=== PATIENT | male | born 1975 | race African-American/Black ===

== ENCOUNTER 2023-07-29 10:02 | Inpatient (IN) ==
[2023-07-29] MEDS ORDERED: SODIUM CHLORIDE 0.9% 1,000 ML IV SCH (10:28)
--- NOTE | 2023-07-29 11:01 | Emergency Department Note ---
Impression & Plan Ileal intussusception, Abdominal pain, Respiratory syncytial virus (RSV) infection ED Provider Note NAME: LIDA NIETO AGE: 47 SEX: M : 1975 ARRIVES VIA: Walk-In INFORMANT: Patient, ED PROVIDER(S): Leobardo Rendon MD CHIEF COMPLAINT: Abdominal pain MEDICAL DECISION MAKING: Patient presents due to concern for abdominal pain which been ongoing since the weekend. The patient has had associated upper respiratory symptoms as well. IV was established blood was obtained patient was ordered IV fluids and antiemetics. Chest x-ray and bio fire also completed. Blood work shows a white count of 12 with a normal H&H and platelet count. Given the patient's normal hemoglobin the patient is dorsals may have been secondary to the patient's Pepto-Bismol use the patient's kidney function is unremarkable with normal LFTs and lipase. Urinalysis not indicative of obvious infection. RSV positive respiratory negative. CT abdomen pelvis shows ileal ileal intussusception with dilated extra fecalized obstructed loop. No pneumatosis. I did discuss this with the on-call general surgery team Dr. Malik recommended NG tube. I discussed with the patient. This was to be placed. An appropriate NG tube placement so it was recommended to be replaced Discussion w/ other healthcare providers: Dr. Malik general surgery Prior /Outside records reviewed: I reviewed a primary care visit from [facility] from May 2020. Patient was seen due to concern for left hip pain. Differential diagnosis: Appendicitis, testicular torsion, UTI, diverticulitis, obstruction, renal colic, mesenteric adenitis, enteririts, PUD, pancreatitis, biliary pathology, hernia, volvulus, constipation, as well as other pathologies were considered. Diagnostics, as interpreted by me: ECG: None Cardiac monitoring: An order was placed for continuous cardiac monitoring. The monitor shows a rate of 85 with sinus rhythm. Patient was placed on pulse oximetry Medical decision rules: None Imaging studies: I informally interpreted the patient's CT abdomen pelvis which does show bowel obstruction with formal report to follow. HPI: Patient presents due to concern for abdominal pain which has been intermittent but progressed over the last week. Patient has had dry nonproductive cough. Patient had nausea. Patient also relates that he has had some dark stools. Patient does not have any prior history of colon cancer or prior history of blood in the stool. The patient states that he did have a recent colonoscopy and was told that this was unremarkable. Patient does not take any NSAIDs or blood thinning medications. The patient did trial some Pepto-Bismol. PAST MEDICAL HISTORY: See Below PAST SURGICAL HISTORY: See Below SOCIAL HISTORY: See Below HOME MEDICATIONS: See Below ALLERGIES: See Below VITALS: See Below PHYSICAL EXAMINATION: GENERAL: NAD, non-toxic. Wearing glasses and a mask EYE EXAM: Normal conjunctiva. PERRL, no anisocoria and EOM's grossly intact w/o pain. NECK: Supple, no nuchal rigidity, no adenopathy, non-tender. No signs of meningismus. FROM of the neck with good chin to chest and neck extension. No stridor. LUNGS: Clear to auscultation. Normal chest wall mechanics. HEART: NSR, no MRG. ABDOMEN: Abdomen soft, diffuse pain, no masses, no rebound or guarding. BACK: No CVA TTP. SKIN: No rashes and no bruising. UPPER EXTREMITIES: Upper extremities are grossly normal. LOWER EXTREMITIES: Grossly normal, no edema. NEURO EXAM: A&O x3, cranial nerves II-XII grossly intact, normal speech, moves all 4 extremities. Past Med/Surg History Surgical History S/P wisdom tooth extraction Family History Father Lung cancer Denies family history of Ovarian cancer Prostate cancer Myocardial infarction Breast cancer Colorectal cancer Social History Smoking Status: Never smoker Second Hand Exposure: No; Do You Dip or Chew Tobacco: No; Hx Alcohol Use: Yes Alcohol type: beer Alcohol Intake Frequency: Monthly or Less Hx Substance Use: Yes Non-Prescribed Medications: Marijuana Last Used Substance: Just Prior to Arrival Preferred Language: Tunisian Communication Ability: Effective Visual Impairment: No Limitations Hearing Ability: Normal Inventory Control Clerk Required: No Beliefs That Will Affect Care: None marital status: Current Living Situation: Spouse current occupational status: employed current occupation: [employer] Other Information That Helps Us Care for You: No Feels Safe at Home: Yes Safety Concerns: Feels Safe At This Time Childhood Exposure to Second-Hand Smoke: No Diet: regular Dental Care, Regularly: Yes Physical Activity Frequency: 3-4 Times per Week Seatbelt Use: always Sunscreen Use: No Assistive Devices: Glasses Allergies Allergies Allergy/AdvReac Type Severity Reaction Status Date / Time No Known Allergies Allergy Verified 06/14/20 15:10 Home Meds Home Medications Medication Instructions Recorded Confirmed multivitamin 1 tab PO QAM 07/29/23 07/29/23 Results & Data (ED) Vital Signs Vital Signs - 24 hr 07/29/23 12:04 07/29/23 12:10 07/29/23 12:11 Pulse Rate 61 64 59 L Pulse Rate from SpO2 Sensor 60 64 Respiratory Rate 16 17 Blood Pressure Blood Pressure Mean Pulse Oximetry 100 97 07/29/23 12:20 07/29/23 12:30 07/29/23 12:30 Pulse Rate 77 65 Pulse Rate from SpO2 Sensor 75 67 Respiratory Rate 20 19 Blood Pressure 128/74 Blood Pressure Mean 91 Pulse Oximetry 98 100 07/29/23 12:40 07/29/23 12:50 07/29/23 13:00 Pulse Rate 69 58 L 62 Pulse Rate from SpO2 Sensor 68 57 L 63 Respiratory Rate 18 18 17 Blood Pressure Blood Pressure Mean Pulse Oximetry 99 99 99 07/29/23 13:01 07/29/23 13:01 07/29/23 13:10 Pulse Rate 63 59 L Pulse Rate from SpO2 Sensor 64 60 Respiratory Rate 18 17 Blood Pressure 137/74 Blood Pressure Mean 85 Pulse Oximetry 98 99 07/29/23 13:20 07/29/23 13:31 07/29/23 13:31 Pulse Rate 67 Pulse Rate from SpO2 Sensor 70 74 Respiratory Rate 17 16 Blood Pressure 142/79 H Blood Pressure Mean 91 Pulse Oximetry 98 97 07/29/23 13:40 07/29/23 13:50 07/29/23 14:00 Pulse Rate 68 61 68 Pulse Rate from SpO2 Sensor 68 62 67 Respiratory Rate 17 16 17 Blood Pressure Blood Pressure Mean Pulse Oximetry 99 99 99 07/29/23 14:00 07/29/23 14:10 07/29/23 14:20 Pulse Rate 66 68 Pulse Rate from SpO2 Sensor 68 69 Respiratory Rate 20 17 Blood Pressure 100/59 L Blood Pressure Mean 74 Pulse Oximetry 99 99 07/29/23 14:30 07/29/23 14:30 07/29/23 14:40 Pulse Rate 68 72 Pulse Rate from SpO2 Sensor 67 71 Respiratory Rate 15 22 Blood Pressure 120/72 Blood Pressure Mean 92 Pulse Oximetry 99 99 07/29/23 14:50 07/29/23 15:00 07/29/23 15:00 Pulse Rate 71 60 Pulse Rate from SpO2 Sensor 69 59 L Respiratory Rate 16 18 Blood Pressure 125/73 Blood Pressure Mean 85 Pulse Oximetry 99 98 07/29/23 15:10 07/29/23 15:20 07/29/23 15:30 Pulse Rate 63 63 73 Pulse Rate from SpO2 Sensor 62 62 73 Respiratory Rate 16 16 20 Blood Pressure Blood Pressure Mean Pulse Oximetry 99 99 98 07/29/23 15:31 07/29/23 15:31 07/29/23 15:40 Pulse Rate 70 75 Pulse Rate from SpO2 Sensor 69 73 Respiratory Rate 20 16 Blood Pressure 111/65 Blood Pressure Mean 90 Pulse Oximetry 99 99 07/29/23 15:50 07/29/23 16:00 07/29/23 16:01 Pulse Rate 73 77 79 Pulse Rate from SpO2 Sensor 73 68 79 Respiratory Rate 13 14 19 Blood Pressure Blood Pressure Mean Pulse Oximetry 97 99 100 07/29/23 16:01 07/29/23 16:07 07/29/23 16:10 Pulse Rate 142 H 103 H Pulse Rate from SpO2 Sensor Respiratory Rate 21 Blood Pressure Blood Pressure Mean 91 Pulse Oximetry 07/29/23 16:20 07/29/23 16:30 07/29/23 16:40 Pulse Rate 92 H 90 78 Pulse Rate from SpO2 Sensor Respiratory Rate 15 16 18 Blood Pressure Blood Pressure Mean Pulse Oximetry 07/29/23 16:50 07/29/23 16:59 07/29/23 16:59 Pulse Rate 77 93 H Pulse Rate from SpO2 Sensor Respiratory Rate 17 19 Blood Pressure 147/88 H Blood Pressure Mean 90 Pulse Oximetry 07/29/23 17:00 07/29/23 17:01 07/29/23 17:01 Pulse Rate 73 81 Pulse Rate from SpO2 Sensor Respiratory Rate 15 22 Blood Pressure 83/70 L Blood Pressure Mean 81 Pulse Oximetry 07/29/23 17:10 07/29/23 17:20 Pulse Rate 64 75 Pulse Rate from SpO2 Sensor Respiratory Rate 14 17 Blood Pressure Blood Pressure Mean Pulse Oximetry Home Medications Current Medication List: was personally reviewed by me Laboratory Data Attestation: I reviewed the patient's lab results. 07/29/23 11:15 07/29/23 11:15 Lab Results 07/29/23 07/29/23 Range/Units 11:15 11:30 WBC 12.45 H (4.8-10.8) K/ul RBC 5.70 (4.70-6.10) M/uL Hgb 14.4 (14.0-18.0) g/dl Hct 46.0 (42.0-52.0) % MCV 80.7 (80.0-100.0) fL MCH 25.3 (25.0-34.0) pg MCHC 31.3 L (32.0-36.0) g/dL RDW Std Deviation 40.4 (36.4-46.3) fL RDW Coeff of Erick 13.8 (11.5-14.5) % Plt Count 302 (130-400) K/uL MPV 10.4 (9.4-12.4) fL Immature Gran % (Auto) 0.6 % Neut % (Auto) 83.3 % Lymph % (Auto) 9.6 % Dyer % (Auto) 6.2 % Eos % (Auto) 0.1 % Baso % (Auto) 0.2 % Neut # (Auto) 10.38 H (1.40-6.50) K/uL Lymph # (Auto) 1.19 L (1.20-3.40) K/uL Dyer # (Auto) 0.77 H (0.11-0.59) K/uL Eos # (Auto) 0.01 (0.00-0.50) K/uL Baso # (Auto) 0.02 (0.00-0.20) K/uL Immature Gran # (Auto) 0.08 (0.01-0.20) K/uL Sodium 138 (136-145) mmol/L Potassium 3.7 (3.5-5.1) mmol/L Chloride 104 (98-107) mmol/L Carbon Dioxide 26 (21-32) mmol/L Anion Gap 8 (3-11) BUN 8 (6-23) mg/dl Creatinine 0.75 (0.6-1.4) mg/dl Est Cr Clr Drug Dosing 138.6 ml/min Est GFR ( Amer) 125.7 ml/min Est GFR (Non-Af Amer) 108.5 ml/min BUN/Creatinine Ratio 10.7 (10-20) Glucose 107 H (70-99(Fasting)) mg/dl Calcium 9.0 (8.6-10.3) mg/dl Total Bilirubin 0.7 (0.2-1.0) mg/dl AST 12 L (13-39) U/L ALT 7 (7-52) U/L Alkaline Phosphatase 68 (34-104) U/L Total Protein 7.3 (6.0-8.3) gm/dl Albumin 4.0 (3.4-5.0) gm/dl Globulin 3.3 (2.5-4.0) gm/dl Albumin/Globulin Ratio 1.2 (0.9-2) Lipase < 3 L (11-82) U/L Urine Color Dark Yellow Urine Appearance Clear (Clear) Urine pH 8.5 H (4.5-7.5) Ur Specific Hana 1.027 (1.000-1.030) Urine Protein 1+ H (Negative) Urine Glucose (UA) Negative (Negative) Urine Ketones Trace H (Negative) Urine Blood Negative (Negative) Urine Nitrite Negative (Negative) Urine Bilirubin Negative (Negative) Urine Urobilinogen Negative (Negative) Ur Leukocyte Esterase Negative (Negative) Urine WBC (Auto) 1-5 (0-5) /hpf Urine RBC (Auto) 10-30 H (0-4) /hpf U Hyaline Cast (Auto) 1-5 (0-5) /lpf U Epithel Cells (Auto) >30 H (0-5) /lpf Urine Bacteria (Auto) Negative (Negative) Ur Renal Epithelial Cell Not Reportable Adenovirus (PCR) Not Detected (NotDetected) B. pertussis DNA (PCR) Not Detected (NotDetected) B.parapertussis DNA PCR Not Detected (NotDetected) C. pneumoniae DNA (PCR) Not Detected (NotDetected) Coronavirus OC43 (PCR) Not Detected (NotDetected) Coronavirus HKU1 (PCR) Not Detected (NotDetected) Coronavirus 229E (PCR) Not Detected (NotDetected) SARS-CoV-2 (PCR) Not Detected (NotDetected) Coronavirus NL63 (PCR) Not Detected (NotDetected) Human Metapneumovir PCR Not Detected (NotDetected) Influenza Type A (PCR) Not Detected (NotDetected) Influenza Type B (PCR) Not Detected (NotDetected) M. pneumoniae (PCR) Not Detected (NotDetected) Parainfluenza 1 (PCR) Not Detected (NotDetected) Parainfluenza 2 (PCR) Not Detected (NotDetected) Parainfluenza 3 (PCR) Not Detected (NotDetected) Parainfluenza 4 (PCR) Not Detected (NotDetected) RSV (PCR) DETECTED A* (NotDetected) Entero/Rhino (PCR) Not Detected (NotDetected) Administered Medications Lactated Ringer's (Lr) 1,000 mls @ 125 mls/hr IV .Q8H DONNA Stop: 08/28/23 18:44 Last Admin: 07/30/23 03:42 Dose: 125 mls/hr Documented By: Infusion: 07/30/23 03:42 Dose: Infused Documented By: Admin: 07/29/23 19:56 Dose: 125 mls/hr Documented By: LY Morphine Sulfate (Morphine Sulfate 4 Mg/Ml 1 Ml Carp\Vial) 4 mg IV Q3H PRN PRN Reason: Pain (6,7,8,9,10) Stop: 08/12/23 18:44 Last Admin: 07/30/23 08:10 Dose: 4 mg Documented By: Admin: 07/30/23 03:42 Dose: 4 mg Documented By: Admin: 07/29/23 23:32 Dose: 4 mg Documented By: LY Morphine Sulfate (Morphine Sulfate 2 Mg/Ml Carp) 2 mg IV Q3H PRN PRN Reason: Pain (1,2,3,4,5) & Pre PT Stop: 08/12/23 18:44 Last Admin: 07/29/23 20:14 Dose: 2 mg Documented By: LY Discontinued Medications Sodium Chloride (Nss) 1,000 mls @ 999 mls/hr IV .Q1H1M DONNA Stop: 07/29/23 11:28 Last Admin: 07/29/23 11:31 Dose: Not Given Documented By: RAVINDRA Sodium Chloride (Nss) 1,000 mls @ 999 mls/hr IV .Q1H1M ONE Stop: 07/29/23 12:25 Last Infusion: 07/29/23 14:31 Dose: Infused Documented By: Admin: 07/29/23 11:30 Dose: 999 mls/hr Documented By: RAVINDRA Acetaminophen (Ofirmev) 1,000 mg in 100 mls @ 400 mls/hr IV NOW STA Stop: 07/29/23 11:39 Last Infusion: 07/29/23 12:04 Dose: Infused Documented By: Admin: 07/29/23 11:31 Dose: 400 mls/hr Documented By: RAVINDRA Ioversol (Optiray 320 500ml) 94 ml IV ONCE ONE Stop: 07/29/23 13:25 Last Admin: 07/29/23 13:24 Dose: 94 ml Documented By: MARYANNE Ondansetron HCl (Ondansetron Inj 2 Mg/Ml 2 Ml Vial) 4 mg IV NOW STA Stop: 07/29/23 11:26 Last Admin: 07/29/23 11:31 Dose: 4 mg Documented By: RAVINDRA Imaging Data Radiologist's Impression: Chest X-Ray 07/29/23 00:00 SINGLE VIEW CHEST CLINICAL HISTORY: Enteric tube placement. FINDINGS: 2 AP, portable, upright chest radiographs are compared to study performed earlier the same day 07/29/2023. An enteric tube has been placed. The tip projects above the lakshmi. The cardiomediastinal silhouette is top normal for projection. The lungs and pleural spaces are clear. No pneumothorax is seen. The bony thorax is grossly intact. IMPRESSION: 1. An enteric tube has been placed. The tip projects above the lakshmi. Repositioning is indicated. 2. The lungs are clear. ACT 112: Negative or not required by law. Electronically signed by: Hemal Batres M.D. 07/29/2023 7:01 PM Abdomen/Pelvis CT 07/29/23 10:[address] WITH IV CONTRAST CT DOSE: 1238.34 mGy.cm HISTORY: Acute generalized abdominal pain with nausea, vomiting and diarrhea PAIN, N/V/D X 5 DAYS TECHNIQUE: Multiaxial CT images of the abdomen and pelvis were performed following the IV administration of 94 cc of Optiray, A dose lowering technique was utilized adhering to the principles of ALARA. COMPARISON STUDY: None. FINDINGS: Clear lung bases. No free air. Unremarkable spleen, pancreas, gallbladder and adrenal glands. 1.370 left hepatic lobe cyst. Indeterminate ill- defined area of slightly decreased attenuation within the inferior right hepatic lobe, 2.67 m. This may represent vascular shunting versus an indeterminate lesion. Unremarkable kidneys with a few subcentimeters hypodensities which are likely benign. Prostate is upper limits of normal in size. Mild nonspecific urinary bladder wall thickening. Unremarkable aorta. No lymphadenopathy. Moderate colonic fecal retention. Partial distention of the sigmoid with mild wall thickening. Normal appendix. Residual enteric contrast is noted within the bowel. There is dilation of the distal ileum with an ileal ileal intussusception. There is associated ileal wall thickening with adjacent inflammatory stranding. A dilated and obstructed stool-filled loop proximal to the intussusception measures 3.6 cm. The remainder of the small bowel is normal in caliber. Tiny fat filled umbilical hernia. No acute fracture. IMPRESSION: 1. Distal ileal ileal intussusception is noted resulting in a dilated upstream fecalized obstructed loop. Although not visualized on this exam, an ileal mass/lead point would be the diagnosis of exclusion. Surgical consultation is needed. 2. No pneumatosis or pneumoperitoneum. 3. Normal appendix. 4. Colonic diverticulosis without acute diverticulitis. 5. Nonspecific wall thickening of the sigmoid colon may be secondary to chronic diverticular disease. This could be correlated with a follow-up colonoscopy. ACT 112: Negative or not required by law. The above report was generated using voice recognition software. It may contain grammatical, syntax or spelling errors. Electronically signed by: Brian Mata M.D. 07/29/2023 2:02 PM Chest X-Ray 07/29/23 11:25 XR chest 1V portable HISTORY: 47 years-old Male cough acute cough COMPARISON: None TECHNIQUE: AP view of the chest FINDINGS: Cardiomediastinal and hilar silhouettes are within normal limits. No pneumothorax, pleural effusion, airspace consolidation or pulmonary edema. Bones appear grossly intact. IMPRESSION: No acute process. ACT 112: Negative or not required by law. The above report was generated using voice recognition software. It may contain grammatical, syntax or spelling errors. Electronically signed by: Brian Mata M.D. 07/29/2023 12:06 PM Discharge Plan Visit Data Chief Complaint: Vomiting Stated Complaint: NAUSEA,VOMITING,ABD PAIN BLACK STOOL ED Provider: Leobardo Rendon Discharge Problem: Ileal intussusception, Abdominal pain, Respiratory syncytial virus (RSV) infection Patient Disposition: Admitted As Inpatient Discharge Instructions Interventions: ED Discharge Assessment Last Done: 07/29/23 18:14 Discharge Problem: Abdominal pain Qualifiers: Abdominal location: generalized Qualified Code(s): R10.84 - Generalized abdominal pain
[2023-07-29] MEDS ORDERED: ONDANSETRON INJ 2 MG/ML 2 ML VIAL IV STA (11:25)
[2023-07-29] MEDS ORDERED: SODIUM CHLORIDE 0.9% 1,000 ML IV ONE (11:25)
[2023-07-29] MEDS ORDERED: ACETAMINOPHEN 1,000 MG/100 ML VIAL IV STA (11:25)
[2023-07-29 11:42] LABS: Basophils # (auto) 0.02 K/uL (0.00-0.20); Basophils % (auto) 0.2 %; Eosinophils # (auto) 0.01 K/uL (0.00-0.50); Eosinophils % (auto) 0.1 %; Hemoglobin 14.4 g/dl (14.0-18.0); Immature Granulocytes # (auto) 0.08 K/uL (0.01-0.20); Immature Granulocytes % (auto) 0.6 %; Lymphocytes # (auto) 1.19 K/uL (1.20-3.40); Lymphocytes % (auto) 9.6 %; Mean Corpuscular Hemoglobin 25.3 pg (25.0-34.0); Mean Corpuscular Hgb Conc 31.3 g/dL (32.0-36.0); Mean Corpuscular Volume 80.7 fL (80.0-100.0); Mean Platelet Volume 10.4 fL (9.4-12.4); Monocytes # (auto) 0.77 K/uL (0.11-0.59); Monocytes % (auto) 6.2 %; Neutrophils # (auto) 10.38 K/uL (1.40-6.50); Neutrophils % (auto) 83.3 %; Platelet Count 302 K/uL (130-400); RDW Coefficient of Variation 13.8 % (11.5-14.5); RDW Standard Deviation 40.4 fL (36.4-46.3); White Blood Count 12.45 K/ul (4.8-10.8)
[2023-07-29 11:58] LABS: Appearance Urine Clear (Clear); Bacteria Urine Automated Negative (Negative); Bilirubin Urine Negative (Negative); Blood Urine Negative (Negative); Color Urine Dark Yellow; Epithelial Cell Urine Auto >30 /lpf (0-5); Glucose Urine UA Negative (Negative); Ketones Urine Trace (Negative); Leukocyte Esterase Urine Negative (Negative); Nitrite Urine Negative (Negative); Specific Gravity Urine 1.027 (1.000-1.030); Urobilinogen Urine Negative (Negative); pH Urine 8.5 (4.5-7.5)
[2023-07-29 12:06] LABS: Anion Gap 8 (3-11); BUN Creatinine Ratio 10.7 (10-20); Blood Urea Nitrogen 8 mg/dl (6-23); Carbon Dioxide 26 mmol/L (21-32); Chloride 104 mmol/L (98-107); Creatinine Clr Calc Pharmacy 138.6 ml/min; Est GFR (African American) 125.7 ml/min; Est GFR (Non-African American) 108.5 ml/min; Glucose 107 mg/dl (70-99(Fasting)); Potassium 3.7 mmol/L (3.5-5.1); Sodium 138 mmol/L (136-145)
--- NOTE | 2023-07-29 12:08 | XRay Report ---
XR chest 1V portable HISTORY: 47 years-old Male cough acute cough COMPARISON: None TECHNIQUE: AP view of the chest FINDINGS: Cardiomediastinal and hilar silhouettes are within normal limits. No pneumothorax, pleural effusion, airspace consolidation or pulmonary edema. Bones appear grossly intact. IMPRESSION: No acute process. ACT 112: Negative or not required by law. The above report was generated using voice recognition software. It may contain grammatical, syntax o r spelling errors. Electronically signed by: Brian Mata M.D. 07/29/2023 12:06 PM
[2023-07-29 12:15] LABS: Alanine Aminotransferase 7 U/L (7-52); Albumin Globulin Ratio 1.2 (0.9-2); Alkaline Phosphatase 68 U/L (34-104); Aspartate Aminotransferase 12 U/L (13-39); Bilirubin,Total 0.7 mg/dl (0.2-1.0); Globulin 3.3 gm/dl (2.5-4.0); Lipase < 3 U/L (11-82); Total Protein 7.3 gm/dl (6.0-8.3)
[2023-07-29 12:16] LABS: Protein Urine 1+ (Negative)
[2023-07-29 12:43] LABS: Adenovirus PCR Not Detected (NotDetected); Bordetella parapertussis PCR Not Detected (NotDetected); Bordetella pertussis PCR Not Detected (NotDetected); Chlamydia pneumoniae PCR Not Detected (NotDetected); Coronavirus 229E PCR Not Detected (NotDetected); Coronavirus CoV-2 (COVID19)PCR Not Detected (NotDetected); Coronavirus HKU1 PCR Not Detected (NotDetected); Coronavirus NL63 PCR Not Detected (NotDetected); Coronavirus OC43PCR Not Detected (NotDetected); Human Metapneumovirus PCR Not Detected (NotDetected); Influenza A PCR Not Detected (NotDetected); Influenza B PCR Not Detected (NotDetected); Mycoplasma pneumoniae PCR Not Detected (NotDetected); Parainfluenza Virus 1 PCR Not Detected (NotDetected); Parainfluenza Virus 2 PCR Not Detected (NotDetected); Parainfluenza Virus 3 PCR Not Detected (NotDetected); Parainfluenza Virus 4 PCR Not Detected (NotDetected); Rhinovirus/Enterovirus PCR Not Detected (NotDetected)
[2023-07-29 12:53] LABS: Respiratory Syncytial VirusPCR DETECTED (NotDetected)
[2023-07-29] MEDS ORDERED: OPTIRAY 320 500ml IV ONE (13:24)
--- NOTE | 2023-07-29 14:04 | CT Scan Report ---
ABDOMEN AND PELVIS CT WITH IV CONTRAST CT DOSE: 1238.34 mGy.cm HISTORY: Acute generalized abdominal pain with nausea, vomiting and diarrhea PAIN, N/V/D X 5 DAYS TECHNIQUE: Multiaxial CT images of the abdomen and pelvis were performed following the IV administrat ion of 94 cc of Optiray, A dose lowering technique was utilized adhering to the principles of ALARA. COMPARISON STUDY: None. FINDINGS: Clear lung bases. No free air. Unremarkable spleen, pancreas, gallbladder and adrenal gland s. 1.370 left hepatic lobe cyst. Indeterminate ill-defined area of slightly decreased attenuation wit hin the inferior right hepatic lobe, 2.67 m. This may represent vascular shunting versus an indetermi ayaka lesion. Unremarkable kidneys with a few subcentimeters hypodensities which are likely benign. Prostate is upp er limits of normal in size. Mild nonspecific urinary bladder wall thickening. Unremarkable aorta. No lymphadenopathy. Moderate colonic fecal retention. Partial distention of the sigmoid with mild wall thickening. Normal appendix. Residual enteric contrast is noted within the bowel. There is dilation of the distal ileum with an ileal ileal intussusception. There is associated ileal wall thickening with adjacent inflamm atory stranding. A dilated and obstructed stool-filled loop proximal to the intussusception measures 3.6 cm. The remainder of the small bowel is normal in caliber. Tiny fat filled umbilical hernia. No a cute fracture. IMPRESSION: 1. Distal ileal ileal intussusception is noted resulting in a dilated upstream fecalized obstructed l oop. Although not visualized on this exam, an ileal mass/lead point would be the diagnosis of exclusi on. Surgical consultation is needed. 2. No pneumatosis or pneumoperitoneum. 3. Normal appendix. 4. Colonic diverticulosis without acute diverticulitis. 5. Nonspecific wall thickening of the sigmoid colon may be secondary to chronic diverticular disease. This could be correlated with a follow-up colonoscopy. ACT 112: Negative or not required by law. The above report was generated using voice recognition software. It may contain grammatical, syntax o r spelling errors. Electronically signed by: Brian Mata M.D. 07/29/2023 2:02 PM
--- NOTE | 2023-07-29 17:25 | History & Physical Report ---
Date of Service July 29, 2023 Assessment & Plan (1) Ileal intussusception: Plan: IVF IV abx ng decompression possible enema History of Present Illness Primary Care Provider: Moreno Allen DO This 39-year-old black male who presents with about a week history of some nausea and vomiting. Also some mild diffuse abdominal pain. She had a change in bowel this included some black stools. He denies any fevers chills. CT scan done in the ED shows likely distal ileal intussusception with possible lead point. Allergies Allergy/AdvReac Type Severity Reaction Status Date / Time No Known Allergies Allergy Verified 06/14/20 15:10 Home Medications Medication Instructions Recorded Confirmed Type multivitamin 1 tab PO QAM 07/29/23 07/29/23 History Past Med/Surg History Surgical History S/P wisdom tooth extraction Family History Father Lung cancer Denies family history of Ovarian cancer Prostate cancer Myocardial infarction Breast cancer Colorectal cancer Social History Smoking Status: Never smoker Second Hand Exposure: No; Do You Dip or Chew Tobacco: No; Hx Alcohol Use: Yes Alcohol type: beer Alcohol Intake Frequency: Monthly or Less Hx Substance Use: Yes Non-Prescribed Medications: Marijuana Last Used Substance: Hours (ago) Preferred Language: Burmese Communication Ability: Effective Visual Impairment: No Limitations Hearing Ability: Normal marital status: Current Living Situation: Spouse current occupational status: employed current occupation: [employer] Feels Safe at Home: Yes Childhood Exposure to Second-Hand Smoke: No Diet: regular Dental Care, Regularly: Yes Physical Activity Frequency: 3-4 Times per Week Seatbelt Use: always Sunscreen Use: No Review of Systems Constitutional: + anorexia; no fever and no chills Eyes: no problem reported Ear, Nose, Mouth, Throat: no problem reported Respiratory: no cough and no dyspnea Cardiovascular: no chest pain Gastrointestinal: + abdominal pain, + nausea and + vomitin g Genitourinary: no dysuria Musculoskeletal: no back pain Integumentary: no problem reported Neurologic: no problem reported Psychiatric: no problem reported Endocrine: no problem reported Hematologic / Lymphatic: no easy bleeding and no easy bruising Physical Exam Constitutional: WD/WN, vitals as above Eyes: PERRL, conjunctivae normal, anicteric sclerae ENMT: external ear and nose normal, oropharynx normal Neck: trachea midline Respiratory: normal respiratory effort, lungs clear to auscultation Cardiovascular: RRR, no murmur, no edema Gastrointestinal (Abdomen): Inspection/Auscultation: abdomen normal to inspection and normal bowel sounds; abdomen not distended Percus justin/Palpation: + abdomen tender and abdomen soft; no guarding and abdomen not rigid Musculoskeletal: Head/Neck/Chest: normocephalic and head atraumatic Skin: no rashes, warm and dry Results & Data Results & Data Vital Signs (Past 12 Hours) Vital Signs Temp Pulse Resp BP Pulse Ox O2 Del Method 07/29/23 16:30 90 16 07/29/23 16:20 92 H 15 07/29/23 16:10 103 H 21 07/29/23 16:07 142 H 07/29/23 16:01 79 19 100 07/29/23 16:00 77 14 99 07/29/23 15:50 73 13 97 07/29/23 15:40 75 16 99 07/29/23 15:31 70 20 99 07/29/23 15:31 111/65 07/29/23 15:30 73 20 98 07/29/23 15:20 63 16 99 07/29/23 15:10 63 16 99 07/29/23 15:00 125/73 07/29/23 15:00 60 18 98 07/29/23 14:50 71 16 99 07/29/23 14:40 72 22 99 07/29/23 14:30 120/72 07/29/23 14:30 68 15 99 07/29/23 14:20 68 17 99 07/29/23 14:10 66 20 99 07/29/23 14:00 100/59 L 07/29/23 14:00 68 17 99 07/29/23 13:50 61 16 99 07/29/23 13:40 68 17 99 07/29/23 13:31 16 97 07/29/23 13:31 142/79 H 07/29/23 13:20 67 17 98 07/29/23 13:10 59 L 17 99 07/29/23 13:01 137/74 07/29/23 13:01 63 18 98 07/29/23 13:00 62 17 99 07/29/23 12:50 58 L 18 99 07/29/23 12:40 69 18 99 07/29/23 12:30 128/74 07/29/23 12:30 65 19 100 07/29/23 12:20 77 20 98 07/29/23 12:11 59 L 07/29/23 12:10 64 17 97 07/29/23 12:04 61 16 100 07/29/23 10:07 36.5 C 106 H 18 131/89 99 Room Air Diagnostic Findings ABDOMEN AND PELVIS CT WITH IV CONTRAST CT DOSE: 1238.34 mGy.cm HISTORY: Acute generalized abdominal pain with nausea, vomiting and diarrhea PAIN, N/V/D X 5 DAYS TECHNIQUE: Multiaxial CT images of the abdomen and pelvis were performed following the IV administration of 94 cc of Optiray, A dose lowering technique was utilized adhering to the principles of ALARA. COMPARISON STUDY: None. FINDINGS: Clear lung bases. No free air. Unremarkable spleen, pancreas, g allbladder and adrenal glands. 1.370 left hepatic lobe cyst. Indeterminate ill- defined area of slightly decreased attenuation within the inferior right hepatic lobe, 2.67 m. This may represent vascular shunting versus an indeterminate lesion. Unremarkable kidneys with a few subcentimeters hypodensities which are likely benign. Prostate is upper limits of normal in size. Mild nonspecific urinary b ladder wall thickening. Unremarkable aorta. No lymphadenopathy. Moderate colonic fecal retention. Partial distention of the sigmoid with mild wall thickening. Normal appendix. Residual enteric contrast is noted within the bowel. There is dilation of the distal ileum with an ileal ileal intussusception. There is associated ileal wall thickening with adjacent inflammatory stranding. A dilated and obstructed stool-filled loop proximal to the intussusception measures 3.6 cm. The remainder of the small bowel is normal in caliber. Tiny fat filled umbilical hernia. No acute fracture. IMPRESSION: 1. Distal ileal ileal intussusception is noted resulting in a dilated upstream fecalized obstructed loop. Although not visualized on this exam, an ileal mass/lead point would be the diagnosis of exclusion. Surgical consultation is needed. 2. No pneumatosis or pneumoperitoneum. 3. Normal appendix. 4. Colonic diverticulosis without acute diverticulitis. 5. Nonspecific wall thickening of the sigmoid colon may be secondary to chronic diverticular disease. This could be correlated with a follow-up colonoscopy.
--- NOTE | 2023-07-29 19:03 | XRay Report ---
SINGLE VIEW CHEST CLINICAL HISTORY: Enteric tube placement. FINDINGS: 2 AP, portable, upright chest radiographs are compared to study performed earlier the same day 07/29/2023. An enteric tube has been placed. The tip projects above the lakshmi. The cardiomediast inal silhouette is top normal for projection. The lungs and pleural spaces are clear. No pneumothorax is seen. The bony thorax is grossly intact. IMPRESSION: 1. An enteric tube has been placed. The tip projects above the lakshmi. Repositioning is indicated. 2. The lungs are clear. ACT 112: Negative or not required by law. Electronically signed by: Hemal Batres M.D. 07/29/2023 7:01 PM
--- NOTE | 2023-07-29 19:22 | XRay Report ---
KUB CLINICAL HISTORY: Enteric tube placement. FINDINGS: 2 AP, portable, supine abdominal radiographs are correlated with abdominal CT performed the same day 07/29/2023. An enteric tube has been placed. The tip projects below the diaphragm over the gastric fundus. There is gaseous distention of the small bowel loops which measure up to 3.2 cm in di ameter. When correlated with today's abdominal CT scan this likely represents obstruction. Intussusce ption seen by CT is not appreciated by x-ray. There is mild to moderate fecal retention throughout th e colon. No abnormal abdominal calcifications are identified. Excreted IV contrast fills the bladder. The lung bases are clear as imaged. The bony structures appear intact. IMPRESSION: 1. An enteric tube has been placed as above. 2. Persistent small bowel obstruction. Electronically signed by: Hemal Batres M.D. 07/29/2023 7:20 PM
[2023-07-29] MEDS: LACTATED RINGER'S 1,000 ML IV SCH (19:56)
--- OUTSIDE RECORDS SUMMARY | 2023-07-29 20:12 | External Medical Summary | Continuity of Care Document ---
Author Name Unknown Organization [id number] Address [address] [place] [phone] Care Team Providers Care Sterilization Technician Name Role Phone Moreno Allen Kelly Primary Care Physician [phone] Encounter [facility] [id number] Date(s): 05/14/23 - 05/14/23 [facility] 0 Partly [facility] [address] [facility] [address] [place] [address] Encounter Diagnosis Left hip pain(Discharge Diagnosis) - 05/14/23 Discharge Disposition: Home or Self Care Attending Physician: MD Scar, Waqas Osman Allergies, Adverse Reactions, Alerts No Known Allergies Immunizations Given and Recorded Vaccine Date Status Refusal Reason influenza virus vaccine, inactivated 07/23/18 Maurice rded Medications One-A-Day Men's Health Formula Start: 12/31/14 13:38:00 Start Date: 12/31/14 Status: Ordered Vitamin C Start: 12/26/21 13:05:00 EDT Start Date: 12/26/21 Status: Ordered Vitamin D3 Start: 12/26/21 13:05:00 EDT Start Date: 12/26/21 Status: Ordered vitamin E Start: 12/26/21 13:05:00 EDT Start Date: 12/26/21 Status: Ordered Mental Status 05/14/23 Barriers to Learning one year None evide nt Mandatory Health Literacy Documentation Yes Health Literacy Communication Barriers N ever Primary Language Tamazight Problem List Condition Confirmation Course Effective Dates Status Health St [facility]us Informant Contact dermatitis Confirmed Active DEPRESSION Confirmed Active Left hip pain Confirmed Active Weight disorder Confirmed Active Diagnosis Diagnosis Type Effective Dates Health Status Cl inical Service Informant Left hip pain Discharge Diagnosis 05/14/23 Procedures Procedure Date Related Diagnosis Body Site Status Colonoscopy 1 02/18/23 Completed Hip X-ray 2 12/28/22 Completed none Completed 1Impression: The rectum, sigmoid colon, descending colon, splenic flexure, transverse colon, hepaticflexure, ascending colon, cecum and recto-sigmoid colon are normal No specimens collected Repeat 10 years 2Impression: No acute osseous abnormality. Social History Social History Type Response Smoking Status Never smoked cigaret yaniv Sex Male 1Smoked for 2 to 3 years during college. Patient Care team information Care Team Personnel Name: DO Allen Franklin J Position: Physician - Family Med Member Role: Primary Care Provider Address: Address: [facility] [address] [address] Care Team Related Persons Name: KYARA NIETO Address: home [address] [place] [phone]
--- OUTSIDE RECORDS SUMMARY | 2023-07-29 20:12 | External Medical Summary | Continuity of Care Document ---
Author Name Unknown Organization [id number] Address [address] [place] [address] [phone] Care Team Providers Care Health Care Facilities Inspector Name Role Phone Moreno Allen Primary Care Physician [phone] Encounter [facility] [id number] Date(s): 02/05/23 - 02/05/23 [facility] 0 [facility] [address] [facility] Sports Medicine [address] [place] [address] Encounter Diagnosis Femoroacetabular impingement of left hip(Discharge Diagnosis) - 02/05/23 Left hip pain(Discharge Diagnosis) - 02/05/23 Discharge Disposition: Home or Self Care Attending Physician: MD Abbott Paul K Referring Physician: DO Allen Franklin J Allergies, Adverse Reactions, Alerts No Known Allergies Assessment and Plan Extracted from: Title:Waqas Abbott Author:Christine Saldana ate:02/05/23 IMPRESSION: 47 y/o male with left hip pain question labrum tear PLAN: Initial conservative options include diagnostic and therapeutic US guided cortisone injection of the left hip and physical therapy. He would like to start with PT prior to an injection. He will contact the office if he Discuss that if pain does not improve with conservative measures surgical repair of potential labrum tear is an option. Follow-up 3-4 months Immunizations Given and Recorded Vaccine Date Status [...] Start Date: 12/26/21 Status: Ordered Mental Status 02/05/23 Barriers to Learning one year None evide nt Mandatory Health Literacy Documentation Yes Health Literacy Communication Barriers N ever Primary Language Turkmen Problem List Condition Confirmation Course Effective Dates Status Health St atus Informant Contact dermatitis Confirmed Active DEPRESSION Confirmed Active Left hip pain Confirmed Active Weight disorder Confirmed Active Diagnosis Diagnosis Type Effective Dates Health Status Clinical Service Informant Left hip pain Discharge Diagnosis 02/05/23 Femoroacetabular impingement of left hip Discharge Diagnosis 02/05/23 Procedures Procedure Date Related Diagnosis Body Site Status Hip X-ray 1 12/28/22 Completed none Completed 1Impression: No acute osseous abnormality. Vital Signs Most recent to oldest [Reference Range]: 1 Height 181 cm (02/05/23 8:33 AM) Patient Weight 93 kg (02/05/23 8:33 AM) Body Mass Index 28.39 kg/m2 (02/05/23 8:33 AM) Social History Social History Type Response Smoking Status Former Smoker, quit within 31 days - 1 yr Sex Male 1Smoked for 2 to 3 years during college. Ortho Outpt Note * Christine Saldana: MODIFY, PERFORM Event Display: Ortho Outpt Note Authored Date: [id number] Primary Care Provider DO Allen Franklin J Referring Provider DO Allen Franklin J Chief Complaint L hip pain History of Present Illness [id number] yearJerrod presents today forevaluation of left hip pain. Patient reports he developed left hip pain 2 years ago while in a deep squat stretch. He did seea physical or massage therapist at onset who performed stretches that improved his symptoms. Patient states he has a feeling of instability in his hip that will give a sense of being off-balance withtwisting movements. He notes improvement of pain with hip flexorstretching. He characterizes the pain as a 3/10 persistent pain localized to the groin area that is exacerbated with the instability w hiletwisting thehip. He has tried ibuprofen as needed for pain. Patient denies numbness and back pain but does endorseinfrequent clicking of the hip. Review of Systems Complete 14 system review in shared EMR Physical Exam Vitals & Measurements HT:181cm WT:93.000kg(Dosing) WT:93kg BMI:28.39 Focusing on the patient's left lower extremity: Sensation intact to light touch L3 to S1 dermatomes ROM: Tightness with Flexion 115/ Abduction 40/ External rotation 50/ Internal rotation 20 5-/5 Strength Hip abduction NegativeLog roll PositiveScour test PositiveImpingement test Negative Derrick's test Mild Tenderness over trochanteric bursa Positive Tenderness over joint capsule, posterior and superiorly NegativeSI joint tenderness Diagnostic Results I obtained and personally interpreted AP Pelvis and Left hip AP and lateral viewswhich shows a positive cross-over sign, joint space well-maintained. Note is made of well-circumscribed radiodensityin inner trochanteric region, benign appearing Assessment/Plan IMPRESSION: 47 y/o male with left hip pain question labrum tear PLAN: Initial conservative options include diagnostic and therapeutic US guided cortisone injection of the left hip and physical therapy. He would like to start with PT prior to an injection. He will contact the office if he Discuss that if pain does not improve with conservative measures surgical repairof potential labrum tear is an option. Follow-up 3-4 months Attestation Christine Ray, scribing for and in the presence of, Waqas Abbott, on this date,02/05/2023 09:00:04. Problem List/Past Medical History Ongoing Contact dermatitis DEPRESSION Left hip pain Weight disorder Procedure/Surgical History Hip X-ray (12/28/2022)none Medications ascorbic acid(Vitamin C) cholecalciferol(Vitamin D3) multivitamin(One-A-Day Men's Health Formula) vitamin E Allergies NKA Social History Smoking Status Former Smoker, quit within 31 days - 1 yr Alcohol - Denies Alcohol Use Use:Current Type:Beer Frequency:1-2 times per week Average drinks per episode in last year:2 Home/Environment Smoker in household:No Injuries/Abuse/Neglect in household:No Feels unsafe at home:No Substance Abuse - Denies Substance Abuse Use:Current Type:Marijuana Tobacco - Denies Tobacco Use Use:Never smoker - Comments: Smoked for 2 to 3 years during college. Family History Alzheimer disease: Father. Arthritis: Father. Cancer: Mother and Father. Diverticulitis: Father. Migraine: Father. Health Status Family Member(s) Immunizations Vaccine Date Status influenza virus vaccine, inactivated 07/23/2018 Recorded Recommendations Health Maintenance Pending(in the next year) OverDue Adult Influenza Vaccine due02/13/22and every 1year Due Adult COVID-19 Vaccination due02/05/23Unknown Frequency Adult Tdap/Td Vaccine due02/05/23Unknown Frequency Colorectal Cancer Screening due02/05/23Unknown Frequency Hepatitis C Screening due02/05/23One-time only Lipid Screening due02/05/23Unknown Frequency Due In Future Body Mass Index not due until02/05/24and every 1year Satisfied(in the past 1 year) Satisfied Body Mass Index on02/05/23.Satisfied by ROXANNE Dejesus Kennie L Electronic Signature on File Electronically Reviewed/Signed by: Christine Saldana Author Signature Dt/Tm:02/05/2023 09:47 AM Electronically Reviewed/Signed by: Waqas Abbott MD Cosigner Signature Dt/Tm: 02/05/2023 01:35PM Division of Sports Medicine [place] Patient Care team information Care Team Personnel Name: DO Allen Franklin J Position: Physician - Family Med Member Role: Primary Care Provider Address: Address: [facility] [address] [address] Care Team Related Persons Name: KYARA NIETO Address: home [address] [place] [phone]
[2023-07-29] MEDS: MoRPHine SULFATE 2 MG/ML CARP IV PRN (20:14)
[2023-07-29] MEDS: MoRPHine SULFATE 4 MG/ML 1 ML CARP\\VIAL IV PRN (23:32)
[2023-07-30] MEDS: MoRPHine SULFATE 4 MG/ML 1 ML CARP\\VIAL IV PRN ×3 (03:42→19:45)
[2023-07-30] MEDS: LACTATED RINGER'S 1,000 ML IV SCH ×3 (03:42→19:45)
--- NOTE | 2023-07-30 10:48 | XRay Report ---
KUB HISTORY: Follow-up small bowel obstruction COMPARISON: KUB 07/29/2020. FINDINGS: Distended gas-filled loops of small bowel are again seen within the abdomen consistent with the patient's known small bowel obstruction. This has progressed in the interval. These bowel loops measure up to 4.4 cm in diameter. No renal calculi. No ureteral calculi. No pneumoperitoneum or pneu matosis. A nasogastric tube terminates in the stomach. IMPRESSION: Interval progression of the small bowel obstruction. ACT 112: Negative or not required by law. Electronically signed by: Jim Stahl M.D. 07/30/2023 10:47 AM
--- NOTE | 2023-07-30 14:11 | Surgery Progress Note ---
Date of Service July 30, 2023 Assessment & Plan (1) Ileal intussusception: Plan: ng tube IVF likely R colectomty early next week (2) Ileal intussusception: Admission and Anticipated Discharge Date Admission Date: July 29, 2023 Subjective feels better Review of Systems Constitutional: no fever and no chills Respiratory: no cough and no dyspnea Cardiovascular: no chest pain Gastrointestinal: + abdominal pain; no nausea and no vomit ing Genitourinary: no dysuria Neurologic: no localized weakness and no generalized weakness Psychiatric: no behavioral changes Physical Exam Constitutional: WD/WN, vitals as above Eyes: PERRL, conjunctivae normal, anicteric sclerae Neck: trachea midline Respiratory: normal respiratory effort, lungs clear to auscultation Cardiovascular: RRR, no murmur, no edema Gastrointestinal (Abdomen): Inspection/Auscultation: abdomen normal to inspection and + abdomen distended; + abnormal bowel sounds Percussion/Palpation: + abdomen tender and abdomen soft; no guarding and abdomen not rigid Musculoskeletal: Head/Neck/Chest: normocephalic and head atraumatic Skin: no rashes, warm and dry Results & Data Vital Signs (Past 12 Hours) Vital Signs Temp Pulse Pulse Resp BP Pulse Ox O2 Del Method 07/30/23 12:03 37.2 C 81 18 138/68 97 Room Air 07/30/23 07:35 36.6 C 72 16 134/80 97 Room Air
[2023-07-30] MEDS: MoRPHine SULFATE 2 MG/ML CARP IV PRN (14:48)
[2023-07-30] MEDS: ONDANSETRON INJ 2 MG/ML 2 ML VIAL IV PRN ×2 (14:56→19:39)
[2023-07-30] MEDS ORDERED: ACETAMINOPHEN 1,000 MG/100 ML VIAL IV PRN (20:52)
[2023-07-30] MEDS: ALBUT/IPRATROP 3MG/0.5MG NEB 3 ML VIAL NEB PRN (21:02)
[2023-07-31] MEDS: LACTATED RINGER'S 1,000 ML IV SCH ×3 (03:53→20:01)
[2023-07-31] MEDS: MoRPHine SULFATE 4 MG/ML 1 ML CARP\\VIAL IV PRN ×3 (03:53→20:01)
[2023-07-31] MEDS: ONDANSETRON INJ 2 MG/ML 2 ML VIAL IV PRN ×3 (03:53→20:01)
--- NOTE | 2023-07-31 06:11 | Surgery Progress Note ---
Date of Service July 31, 2023 Assessment & Plan (1) Ileal intussusception: Plan: Ileal intussusception noted on CT scan on 07/29/2023. Would recommend continuing care as follows: Continue n.p.o. status Continue NG tube to low continuous suction Continue analgesics as needed Continue antiemetics as needed Plans noted by primary surgical team (Dr. Malik of [facility] surgery) for right colectomy next week. Admission and Anticipated Discharge Date Admission Date: July 29, 2023 Supervising Physician Co-Signing Physician Notes I have seen this patient this am. I agree with the above. HD stable, afebrile. No acute changes or events o/n. The patient denies any increased abdominal pain, distention, F/C. NGT is in place and functioning. Continue NPO. He awaits planned surgical procedure for next week. Will follow through the weekend for acute changes. Subjective Patient is currently resting comfortably in bed. He denies any worsening abdominal pain. Since NG tube has been placed he denies any nausea or vomiting. He denies any fevers, shakes, or chills. He denies any shortness of breath. Physical Exam Gastrointestinal (Abdomen): Abdomen is soft and nondistended. There is minimal pain with palpation. NG tube is in place and has drained 700 cc since insertion on 07/30/2023. Results & Data Vital Signs (Past 12 Hours) Vital Signs Temp Pulse Resp BP Pulse Ox O2 Del Method 07/30/23 21:03 77 18 97 Room Air 07/30/23 19:48 Room Air 07/30/23 19:33 37.3 C 77 18 146/78 H 96 Room Air PG Care Time/CCT Total # of Minutes Spent Total Time Spent with Patient: Total time spent is greater than 50% in coordination of care (as documented) at patient's floor/unit and/or counseling patient: Coding Level of Care Code 73080 SUB INP/OBS CARE 25MIN Diagnoses Ileal intussusception K56.1
[2023-07-31] MEDS: ALBUT/IPRATROP 3MG/0.5MG NEB 3 ML VIAL NEB PRN ×2 (07:16→14:44)
[2023-07-31] MEDS: MoRPHine SULFATE 2 MG/ML CARP IV PRN ×2 (10:38→15:13)
[2023-08-01] MEDS: MoRPHine SULFATE 4 MG/ML 1 ML CARP\\VIAL IV PRN ×3 (00:09→09:02)
[2023-08-01] MEDS: ONDANSETRON INJ 2 MG/ML 2 ML VIAL IV PRN (04:53)
[2023-08-01] MEDS: LACTATED RINGER'S 1,000 ML IV SCH ×3 (04:53→20:12)
--- NOTE | 2023-08-01 05:21 | Surgery Progress Note ---
Date of Service August 01, 2023 Assessment & Plan (1) Ileal intussusception: Plan: Ileal intussusception noted on CT scan on 07/29/2023. Plan is as follows: Continue n.p.o. status Continue NG tube to low continuous suction Continue analgesics as needed Continue antiemetics as needed Right colectomy is tentatively planned for early next week by Dr. Neri of [facility] surgery Admission and Anticipated Discharge Date Admission Date: July 29, 2023 Supervising Physician Co-Signing Physician Notes I have seen this patient this am. His NGT continues to function. There is a small amount of blood tinge to the fluid. Patient needs to be started on Protonix for GI ppx. He has remained afebrile and HD stable without worsening abdominal pain, N/V. I spent a good amount of time answering questions for this patient and his family member regarding the diagnosis and potential surgery. Of note, he asks about indicating to someone that he does not want blood transfusions. I let him know this is a question that can be answered on the surgical consent form and he should mention this when he discusses the actual procedure with Dr. Neri and the OR staff. Dr. Neri will f/u tomorrow. Subjective Patient is resting comfortably in bed. He denies any concerning issues overnight. He specifically denies any worsening abdominal pain. He denies any nausea or vomiting. He denies any shortness of breath. Physical Exam Gastrointestinal (Abdomen): Abdomen is soft and nondistended. There is minimal pain noted with palpation. There is no rebound tenderness or guarding. NG tube is in place and is drained approximately 400 cc over the past 24 hours Results & Data Vital Signs (Past 12 Hours) Vital Signs Temp Pulse Resp BP Pulse Ox O2 Del Method 07/31/23 21:01 36.6 C 72 18 146/74 H 97 Room Air 07/31/23 20:21 Room Air 07/31/23 20:05 36.9 C 77 18 148/79 H 97 Room Air PG Care Time/CCT Total # of Minutes Spent Total Time Spent with Patient: Total time spent is greater than 50% in coordination of care (as documented) at patient's floor/unit and/or counseling patient: Coding Level of Care Code 89404 SUB INP/OBS CARE 25MIN Diagnoses Ileal intussusception K56.1
[2023-08-01] MEDS: ALBUT/IPRATROP 3MG/0.5MG NEB 3 ML VIAL NEB PRN (15:02)
[2023-08-01] MEDS: PANTOprazole 40 MG in SYRINGE 0 ML IV SCH (20:12)
[2023-08-01] MEDS ORDERED: PSEUDOEPHEDRINE HCL 30 MG TAB PO PRN (21:44)
[2023-08-01] MEDS ORDERED: OXYMETAZOLINE 0.05% 30 ML BTL PRN (21:48)
[2023-08-02] MEDS: LACTATED RINGER'S 1,000 ML IV SCH ×3 (05:03→20:03)
[2023-08-02] MEDS: PANTOprazole 40 MG in SYRINGE 0 ML IV SCH ×2 (09:06→20:03)
--- NOTE | 2023-08-02 15:31 | Surgery Progress Note ---
Date of Service August 02, 2023 Assessment & Plan (1) Ileal intussusception: Plan remove ng clears repeat CT scan in AM Admission and Anticipated Discharge Date Admission Date: July 29, 2023 Subjective passing BMs Physical Exam Constitutional: well developed and well nourished Respiratory: normal respiratory effort, lungs clear to auscultation Cardiovascular: RRR, no murmur, no edema Gastrointestinal (Abdomen): Inspection/Auscultation: abdomen normal to inspection; abdomen not distended Percussion/Palpation: abdomen soft; abdomen nontender Results & Data Vital Signs (Past 12 Hours) Vital Signs Temp Pulse Resp BP Pulse Ox O2 Del Method 08/02/23 07:31 36.7 C 83 16 135/82 97 Room Air
[2023-08-03] MEDS: LACTATED RINGER'S 1,000 ML IV SCH ×2 (03:57→11:52)
[2023-08-03] MEDS ORDERED: OPTIRAY 320 125ml IV ONE (07:49)
[2023-08-03] MEDS: PANTOprazole 40 MG in SYRINGE 0 ML IV SCH (08:10)
--- NOTE | 2023-08-03 08:35 | CT Scan Report ---
ABDOMEN AND PELVIS CT WITH IV AND ORAL CONTRAST CT DOSE: 1165.36 mGy.cm HISTORY: Follow-up small bowel obstruction due to intussusception. TECHNIQUE: Multiaxial CT images of the abdomen and pelvis were performed following the use of intrave nous and oral contrast. A dose lowering technique was utilized adhering to the principles of ALARA. COMPARISON STUDY: Abdomen and pelvis CT 07/29/2023. FINDINGS: There are trace bilateral pleural effusions. Left basilar linear densities favor subsegment al atelectasis. No pneumoperitoneum. No pneumatosis. No acute fractures identified. Stable 1.3 cm cys t within the left hepatic lobe. The main portal vein is patent. The gallbladder, pancreas, spleen, an d adrenal glands unremarkable. A few subcentimeter hypodense foci within the kidneys again noted. The se are technically too small to characterize but statistically represent cysts. No hydronephrosis. No rmal caliber abdominal aorta. No retroperitoneal or pelvic lymphadenopathy. There is a tiny fat-conta ining umbilical hernia. Bladder wall thickening is likely due to underdistention. Trace pelvic free f luid is noted. The ileoileal intussusception in small bowel obstruction have resolved in the interval . There is mild mesenteric edema and mild bowel wall thickening involving the ileal loops within the right lower quadrant corresponding to the site of prior intussusception. In addition, there is a 3.7 x 1.9 cm intraluminal mass/polyp within the slightly thickened loop of distal ileum within the right lower quadrant best seen image 210. This mass contains a small amount of fat as well as soft tissue. The distal appendix is slightly thickened and measures up to 6.7 mm in diameter. There is gas within the tip the appendix. This is likely reactive to the adjacent inflammatory change in the ileal loops. Acute appendicitis is considered less likely. IMPRESSION: 1. Interval resolution of the small bowel obstruction and ileoileal intussusception. 2. There is mild mesenteric edema and mild bowel wall thickening involving the ileal loops within the right lower quadrant corresponding to the site of prior intussusception. In addition, there is a 3.7 x 1.9 cm intraluminal mass/polyp within the slightly thickened loop of distal ileum within the right lower quadrant as described above. This likely corresponds to the lead point on the prior intussusce ption. Therefore, surgical excision recommended. 3. The distal appendix is slightly thickened and measures up to 6.7 mm in diameter. There is gas with in the tip the appendix. This is likely reactive to the adjacent inflammatory change in the ileal loo ps. Acute appendicitis is considered less likely. ACT 112: Positive. There are findings on this exam that require communication between the performing entity and the patient following Patient Test Result Information Act ([place] Act 112) guidelines. Electronically signed by: Jim Stahl M.D. 08/03/2023 8:34 AM
--- NOTE | 2023-08-03 14:10 | Surgery Progress Note ---
Date of Service August 03, 2023 Assessment & Plan (1) Ileal intussusception: Plan: discharge will see as outpatient and schedule R colectomy Admission and Anticipated Discharge Date Admission Date: July 29, 2023 Subjective no complaints Results & Data Vital Signs (Past 12 Hours) Vital Signs Temp Pulse Resp BP Pulse Ox O2 Del Method 08/03/23 09:33 Room Air 08/03/23 08:14 37.1 C 66 18 119/75 94 Room Air Diagnostic Findings ABDOMEN AND PELVIS CT WITH IV AND ORAL CONTRAST CT DOSE: 1165.36 mGy.cm HISTORY: Follow-up small bowel obstruction due to intussusception. TECHNIQUE: Multiaxial CT images of the abdomen and pelvis were performed following the use of intravenous and oral contrast. A dose lowering technique was utilized adhering to the principles of ALARA. COMPARISON STUDY: Abdomen and pelvis CT 07/29/2023. FINDINGS: There are trace bilateral pleural effusions. Left basilar linear densities favor subsegmental atelectasis. No pneumoperitoneum. No pneumatosis. No acute fractures identified. Stable 1.3 cm cyst within the left hepatic lobe. The main portal vein is patent. The gallbladder, pancreas, spleen, and adrenal glands unremarkable. A few subcentimeter hypodense foci within the kidneys again noted. These are technically too small to characterize but statistically represent cysts. No hydronephrosis. Normal caliber abdominal aorta. No retr operitoneal or pelvic lymphadenopathy. There is a tiny fat-containing umbilical hernia. Bladder wall thickening is likely due to underdistention. Trace pelvic free fluid is noted. The ileoileal intussusception in small bowel obstruction have resolved in the interval. There is mild mesenteric edema and mild bowel wall thickening involving the ileal loops within the right lower quadrant corresponding to the site of prior intussusception. In addition, there is a 3.7 x 1.9 cm intraluminal mass/polyp within the slightly thickened loop of distal ileum within the right lower quadrant best seen image 210. This mass contains a small amount of fat as well as soft tissue. The distal appendix is slightly thickened and measures up to 6.7 mm in diameter. There is gas within the tip the appendix. This is likely reactive to the adjacent inflammatory change in the ileal loops. Acute appendicitis is considered less likely. IMPRESSION: 1. Interval resolution of the small bowel obstruction and ileoileal intussusception. 2. There is mild mesenteric edema and mild bowel wall thickening involving the ileal loops within the right lower quadrant corresponding to the site of prior intussusception. In addition, there is a 3.7 x 1.9 cm intraluminal mass/polyp within the slightly thickened loop of distal ileum within the right lower quadrant as described above. This likely corresponds to the lead point on the prior intussusception. Therefore, surgical excision recommended. 3. The distal appendix is slightly thickened and measures up to 6.7 mm in diameter. There is gas within the tip the appendix. This is likely reactive to the adjacent inflammatory change in the ileal loops. Acute appendicitis is considered less likely.
--- NOTE | 2023-08-06 11:22 | Discharge Summary ---
Date of Service August 06, 2023 Admission HPI Per Admitting Provider This 39-year-old black male who presents with about a week history of some nausea and vomiting. Also some mild diffuse abdominal pain. She had a change in bowel this included some black stools. He denies any fevers chills. CT scan done in the ED shows likely distal ileal intussusception with possible lead point. Admission Exam (Per Admitting) Constitutional WD/WN, vitals as above Gastrointestinal (Abdomen) Inspection/Auscultation: abdomen normal to inspection and + abdomen distended; + abnormal bowel sounds Percussion/Palpation: abdomen soft; abdomen nontender, no guarding and abdomen not rigid Discharge Data Consultations 07/29/23 16:09 ED Decision to Admit Stat Procedures Performed Operation Date: 08/03/23 07:00 <No data on this case meets the specified criteria> Hospital Course (1) Ileal intussusception: This patient was admitted with an ileal intussusception. He was begun on NG tube decompression and IV fluids. He was also started on IV antibiotics. He slowly began to regain bowel function. He was passing stool without difficulty. His NG tube was removed and he was begun on liquids. Repeat CT scan showed a resolution of his ileal intussusception. 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 He tolerated his diet advancement and was discharged home without complication. He will be seen in the office and will need to undergo a right colectomy as an outpatient.
== END 2023-08-03 14:49 | disposition home or self-care (01) | DRG 390 ==
LOC: ED 10:02 → 3W 17:29
DX: K56.1 Intussusception; B97.4 Respiratory syncytial virus as the cause of diseases classified elsewhere